=== PATIENT | female | born 1995 | race Hispanic/Latino ===

== ENCOUNTER 2023-05-15 07:42 | Emergency (ER) | payer BC ==
[2023-05-15] MEDS ORDERED: IBUPROFEN 200 MG TAB PO ONE (08:27)
--- NOTE | 2023-05-15 09:11 | EDPHYS ---
Physician Documentation [facility] Name: Belgica Avendano Age: 27 yrs Sex: Female : 1995 Arrival Date: 05/15/2023 Time: 07:42 Bed 12 Private MD: ED Physician Paco Weiss HPI: 05/15 08:14 This 27 yrs old Female presents to ER via Ambulatory with complaints of Ear ci Pain, Facial Swelling. 08:14 Left ear pain since last night. Left sided facial swelling around left ear. Took ci tylenol and left over augmentin at 2am with no improvement. Hx of ear infection. Has drainage from ear left. Right ear also beginning to ache. Patient went swimming a few weeks ago.. Historical: - Allergies: 07:49 No Known Allergies; ss - Home Meds: 07:49 None [Active]; ss - PMHx: 07:49 GERD; ss - PSHx: 07:49 Ear tubes; Tonsillectomy; Appendectomy; sinus sx; ss - Immunization history:: Client reports receiving the 2nd dose of the Covid vaccine. - Social history:: Smoking status: Patient denies any tobacco usage or history of. ROS: 08:14 Constitutional: Negative for fever, chills, and weight loss, Eyes: Negative for injury, ci pain, redness, and discharge, ENT: Negative for injury. Positive for pain, and discharge, Neck: Negative for injury, pain, and swelling, Cardiovascular: Negative for chest pain, palpitations, and edema, Respiratory: Negative for shortness of breath, cough, wheezing, and pleuritic chest pain, Abdomen/GI: Negative for abdominal pain, nausea, vomiting, diarrhea, and constipation, Skin: Negative for injury, rash, and discoloration. 08:14 All other systems are negative. Exam: 08:14 Constitutional: This is a well developed, well nourished patient who is awake, alert, ci and in no acute distress. Head/Face: Normocephalic, atraumatic. Eyes: Pupils equal round and reactive to light, extra-ocular motions intact. Lids and lashes normal. Conjunctiva and sclera are non-icteric and not injected. Cornea within normal limits. Periorbital areas with no swelling, redness, or edema. ENT: Nares patent. No nasal discharge, no septal abnormalities noted. R TM intact, left external auditory canal with purulent drainage, pinna TTP. Left periauricular lymphadenopathy. No mastoid tenderness, B/L. Oropharynx with no redness, swelling, or masses, exudates, or evidence of obstruction, uvula midline. Tonsils absent, hx tonsillectomy. Mucous membranes moist. Neck: Trachea midline, no thyromegaly or masses palpated, and no cervical lymphadenopathy. Supple, full range of motion without nuchal rigidity, or vertebral point tenderness. No Meningismus. Chest/axilla: Normal chest wall appearance and motion. Nontender with no deformity. No lesions are appreciated. Cardiovascular: Regular rate and rhythm with a normal S1 and S2. No gallops, murmurs, or rubs. No JVD. No pulse deficits. Respiratory: Lungs have equal breath sounds bilaterally, clear to auscultation and percussion. No rales, rhonchi or wheezes noted. No increased work of breathing, no retractions or nasal flaring. Abdomen/GI: Soft, non-tender, with normal bowel sounds. No distension or tympany. No guarding or rebound. No evidence of tenderness throughout. Back: No spinal tenderness. No costovertebral tenderness. Full range of motion. Skin: Warm, dry with normal turgor. Normal color with no rashes, no lesions, and no evidence of cellulitis. MS/ Extremity: Pulses equal, no cyanosis. Neurovascular intact. Full, normal range of motion. Neuro: Awake and alert, GCS 15, oriented to person, place, time, and situation. Cranial nerves II-XII grossly intact. Motor strength 5/5 in all extremities. Sensory grossly intact. Cerebellar exam normal. Normal gait. Psych: Awake, alert, with orientation to person, place and time. Behavior, mood, and affect are within normal limits. Vital Signs: 07:48 BP 140 / 94; Pulse 97; Resp 16; Temp 98.1(TE); Pulse Ox 100% on R/A; Weight 140.61 kg; ss Height 5 ft. 8 in. ; Pain 10/10; 07:48 Body Mass Index 47.13 (140.61 kg, 172.72 cm) ss 07:48 Pain Scale: Adult ss MDM: 07:56 Patient medically screened. ci 08:14 Differential diagnosis: otitis media, otitis externa, ruptured TM, foreign body, acute ci otalgia. 08:14 ED course: Patient with acute left otalgia. Patient went swimming a week ago. Pinna TTP ci with inflamed nodes. Mastoiditis unlikely, no mastoid TTP. Will start on otic and PO antibiotics. Given ibuprofen for pain. 09:00 Response to treatment: the patient's symptoms have markedly improved after treatment. ci 09:01 Data reviewed: vital signs, nurses notes, old medical records. ci 09:03 ED course: Ear pain improved. Mild swelling 2/2 periauricular lymphadenopathy. No ci streaking, fluctuance suggesting cellulitis. Stable for discharge with PCP f/u. 10:05 Counseling: I had a detailed discussion with the patient and/or guardian regarding the ci presence of at least one elevated blood pressure reading (>120/80) during this emergency department visit. Administered Medications: 08:17 Drug: Ibuprofen PO 600 mg Route: PO; ss 09:26 Follow up: Response: No adverse reaction ss Disposition Summary: 05/15/23 09:11 Discharge Ordered Location: Home ci Condition: Stable ci Diagnosis - Diffuse otitis externa, left ear ci - Otalgia, bilateral ci Followup: ci - With: Private Physician - When: 2 - 3 days - Reason: Re-evaluation by your physician Discharge Instructions: - Discharge Summary Sheet ci - Otitis Externa, [id number] ci - Ear Drops, Adult, [id number] ci Forms: - Medication Reconciliation Form ci - Thank You Letter ci - Antibiotic Education ci - Patient Portal Instructions ci - [employer] [facility] thank you letter ci - Leadership Thank You Letter ci Prescriptions: - ofloxacin 0.3 % Otic drops - instill 10 drop by OTIC route daily for 7 days Dispense 1 bottle; 1 Each; ci Refills: 0, Product Selection Permitted - Augmentin 875-125 mg Oral Tablet - take 1 tablet by ORAL route every 12 hours for 7 days; 14 tablet; Refills: 0, ci Product Selection Permitted Signatures: Marilyn Chavarria, RN RN ss Paco Weiss Corrections: (The following items were deleted from the chart) 07:50 07:49 PMHx: None; ss ss 10:06 08:14 Left ear pain since last night. Left sided facial swelling around left ear. Took ci tylenol and left over augmentin at 2am with no improvement. Hx of ear infection. Has drainage from ear. Right ear also beginning to ache. ci
--- NOTE | 2023-05-15 09:11 | ER ---
Nurse's Notes [facility] Name: Belgica Avendano Age: 27 yrs Sex: Female : 1995 Arrival Date: 05/15/2023 Time: 07:42 Bed 12 Private MD: Diagnosis: Diffuse otitis externa, left ear;Otalgia, bilateral Presentation: 05/15 07:48 Chief complaint: Patient states: L ear pain that began yesterday, swelling today. ss Denies fever. Coronavirus screen: Client denies travel out of the [place] in the last 14 days. Ebola Screen: Patient denies exposure to infectious person. Patient denies travel to an Ebola-affected area in the 21 days before illness onset. Initial Sepsis Screen: Does the patient meet any 2 criteria? No. Patient's initial sepsis screen is negative. Does the patient have a suspected source of infection? No. Patient's initial sepsis screen is negative. Risk Assessment: Do you want to hurt yourself or someone else? Patient reports no desire to harm self or others. Onset of symptoms was May 14, 2023. 07:48 Method Of Arrival: Ambulatory ss 07:48 Acuity: FARRAH 4 ss Historical: - Allergies: 07:49 No Known Allergies; ss - Home Meds: 07:49 None [Active]; ss - PMHx: 07:49 GERD; ss - PSHx: 07:49 Ear tubes; Tonsillectomy; Appendectomy; sinus sx; ss - Immunization history:: Client reports receiving the 2nd dose of the Covid vaccine. - Social history:: Smoking status: Patient denies any tobacco usage or history of. Screenin:50 [facility] ED Fall Risk Assessment (Adult) History of falling in the last 3 months, ss including since admission No falls in past 3 months (0 pts). Abuse screen: Denies threats or abuse. Denies injuries from another. Nutritional screening: No deficits noted. Tuberculosis screening: Never had TB. Assessment: 07:50 General: Appears in no apparent distress. Behavior is calm, cooperative, Denies fever. ss Pain: Complains of pain in right ear and left ear Pain currently is 10 out of 10 on a pain scale. Quality of pain is described as aching, Pain began 1 day ago. Is continuous. Neuro: Level of Consciousness is awake, alert, obeys commands, Oriented to person, place, time, situation. Respiratory: Airway is patent Respiratory effort is even, unlabored, Respiratory pattern is regular, symmetrical. Derm: Skin is intact, is healthy with good turgor, Skin is pink, warm \T\ dry. normal. 07:50 Musculoskeletal: Swelling present in Around L ear, is mild. ss 08:07 Reassessment: Dr. Saucedo at bedside to assess the patient. Vital Signs: 07:48 BP 140 / 94; Pulse 97; Resp 16; Temp 98.1(TE); Pulse Ox 100% on R/A; Weight 140.61 kg; ss Height 5 ft. 8 in. ; Pain 10/10; 07:48 Body Mass Index 47.13 (140.61 kg, 172.72 cm) ss 07:48 Pain Scale: Adult ss ED Course: 07:45 Patient arrived in ED. 07:48 Marilyn Chavarria RN is Primary Nurse. ss 07:49 Triage completed. ss 07:49 Arm band placed on right wrist. ss 07:50 Patient has correct armband on for positive identification. Bed in low position. ss 07:56 Paco Weiss is Attending Physician. ci 09:25 No provider procedures requiring assistance completed. Patient did not have IV access ss during this emergency room visit. Administered Medications: 08:17 Drug: Ibuprofen PO 600 mg Route: PO; ss 09:26 Follow up: Response: No adverse reaction ss Medication: 07:50 VIS not applicable for this client. ss Outcome: 09:11 Discharge ordered by . ci 09:25 Discharged to home ambulatory. ss 09:25 Condition: good 09:25 Discharge instructions given to patient, Instructed on discharge instructions, follow up and referral plans. medication usage, Demonstrated understanding of instructions, follow-up care, medications, Prescriptions given X 2. 09:26 Patient left the ED. Signatures: Marilyn Chavarria, PATRICIA RN Megan vEans Paco Weiss ci Corrections: (The following items were deleted from the chart) 07:50 07:49 PMHx: None; ss
[2023-05-15 09:30] VITALS: BP 140/94; TEMP 98.1; O2SAT 100
== END 2023-05-15 09:26 | disposition home or self-care (01) ==
LOC: ER 07:42
DX: H60.312 Diffuse otitis externa, left ear (principal)
CPT/HCPCS: 99283